=== PATIENT | female | born 1965 | race Caucasian/White ===

== ENCOUNTER 2022-11-14 14:44 | Emergency (ER) | payer OTHER ==
[~2022-11-14] VITALS: Ht 154.9 cm; Wt 42.6 kg
[2022-11-14] MEDS ORDERED: MEMANTINE HCL10 MG PO (15:30)
[2022-11-14] MEDS ORDERED: BUPROPION XL150 MG PO (15:30)
[2022-11-14] MEDS ORDERED: DONEPEZIL HCL10 MG PO (15:30)
== END 2022-11-14 18:53 | disposition home or self-care (01) ==
LOC: ER 14:44
DX: E03.9 Hypothyroidism, unspecified (principal); G30.8 Other Alzheimer's disease; F02.80 Dementia in other diseases classified elsewhere, unspecified severity, without behavioral disturbance, psychotic disturbance, mood disturbance, and anxiety